=== PATIENT | male | born 1970 | race African-American/Black ===

== ENCOUNTER 2016-11-01 16:35 | Emergency (ER) | payer OTHER ==
[~2016-11-01] VITALS: Ht 177.8 cm; Wt 90.3 kg
[~2016-11-01 16:35] MED LIST: CHLORZOXAZONE500 MG PO; FLEXERIL10 MG PO; HYDROCODONE BT1 EACH PO; NAPROSYN375 MG PO; NAPROSYN500 MG PO; PEN-VEE K,VEET500 MG PO; PERCOCET 5/31 TABLET PO; PREDNISONE20 MG PO
[2016-11-01] MEDS ORDERED: MOBIC7.5 MG PO (17:23)
[2016-11-01 18:15] VITALS: BP 132/91
[2016-11-02 12:45] LABS: CHLAMYDIA TRACHOMATIS NEGATIVE; NEISSERIA GONORRHOEAE NEGATIVE
== END 2016-11-01 18:16 | disposition home or self-care (01) ==
LOC: EME 16:35
PROVIDERS: Nurse Practitioner Family
DX: N34.2 Other urethritis (principal); Z20.2 Contact with and (suspected) exposure to infections with a predominantly sexual mode of transmission; M19.90 Unspecified osteoarthritis, unspecified site; Z96.641 Presence of right artificial hip joint; F17.200 Nicotine dependence, unspecified, uncomplicated
CPT/HCPCS: 87491; 87591; 99281; 99284; J0696

== ENCOUNTER 2017-02-04 02:04 | Emergency (ER) | payer OTHER ==
[~2017-02-04] VITALS: Ht 182.9 cm; Wt 92.5 kg
[~2017-02-04 02:04] MED LIST changes: +MOBIC7.5 MG PO
[2017-02-04 02:43] LABS: HEMATOCRIT 37.3 % (38.0-50.0); MCH 25.9 PG (29.0-34.0); MCHC 31.9 G/DL (30.0-36.0); MCV 81.3 FL (86-99); MEAN PLAT.VOLUME 9.7 uM^3 (9.0-12.4); PLATELET COUNT 170 K/uL (156-360); RBC DIS.WIDTH-CV 15.9 % (11.8-14.6); RBC DIS.WIDTH-SD 46.7 % (39-53); RED BLOOD COUNT 4.59 M/uL (4.00-5.50); WHITE BLOOD COUNT 7.3 K/uL (4.1-10.2)
[2017-02-04 02:58] LABS: CHLORIDE 102 mEq/L (99-109); POTASSIUM 3.7 mEq/L (3.7-5.4); SODIUM 141 mEq/L (136-147)
[2017-02-04 03:00] LABS: GLUCOSE 79 mg/dL (70-99)
[2017-02-04 03:01] LABS: ANION GAP 12 MEQ/L (2-14)
[2017-02-04 03:02] LABS: TOTAL BILIRUBIN 0.5 mg/dL (0.0-1.0)
[2017-02-04 03:03] LABS: ALKALINE PHOSPHATASE 81 IU/L (3-129)
[2017-02-04 03:04] LABS: GFR ESTIMATE (CALCULATED) > 59 mL/min/
[2017-02-04 03:05] LABS: DIRECT BILIRUBIN 0.2 mg/dL (0.0-0.3); UREA NITROGEN (BUN) 14 mg/dL (9-23)
[2017-02-04] MEDS ORDERED: ZANTAC150 MG PO (03:06)
[2017-02-04] MEDS ORDERED: AMOXICILLIN500 MG PO (03:06)
[2017-02-04 03:07] LABS: LIPASE 9 U/L (1.0-51.0)
[2017-02-04 03:20] VITALS: BP 130/75
== END 2017-02-04 03:21 | disposition home or self-care (01) ==
LOC: EME 02:04
PROVIDERS: Emergency Medicine
DX: K29.00 Acute gastritis without bleeding (principal); K08.89 Other specified disorders of teeth and supporting structures; Z72.0 Tobacco use
CPT/HCPCS: 80048; 80076; 83690; 85027; 99281; 99283